=== PATIENT | female | born 1935 | race Caucasian/White ===

== ENCOUNTER 2021-04-11 14:15 | Inpatient (IN) ==
[2021-04-12] MEDS ORDERED: Naloxone 0.4 MG/ML INJ IVP PRN (01:57)
[2021-04-12] MEDS ORDERED: Ondansetron 4 MG/2 ML VIAL IVP PRN (01:57)
[2021-04-12] MEDS ORDERED: Acetaminophen 325 MG TABLET PO PRN (01:57)
[2021-04-12] MEDS ORDERED: *HR* Dextrose 50 % in Water (Syg) 50 ML SYRINGE IVP PRN (02:16)
[2021-04-12] MEDS ORDERED: Dextrose Gel 15 GM/37.5 ML TUBE PO PRN ×2 (02:16)
[2021-04-12] MEDS ORDERED: D5% in Water 1,000 ML IVC PRN (02:16)
[2021-04-12] MEDS ORDERED: *HR* Metoprolol 5 MG/5 ML VIAL IVP PRN (02:18)
[2021-04-12] MEDS: *HR* OxyCODONE Immed Rel 5 MG TABLET PO PRN ×3 (02:49→14:52)
[2021-04-12] MEDS: 0.9 % Sodium Chloride 1,000 ML IVC SCH ×2 (02:53→14:45)
[2021-04-12 04:58] LABS: Basophils # 0.1 K/mcL (0.0-0.2); Basophils % 0.6 %; Eosinophils # 0.3 K/mcL (0.0-0.6); Hematocrit 38.4 % (35.3-44.9); Hemoglobin 11.8 g/dL (11.5-15.4); Immature Granulocytes % 0.8 % (0-4); Lymphocytes # 0.8 K/mcL (0.6-4.6); Lymphocytes % 7.5 %; Mean Corpuscular HGB Conc 30.7 g/dL (31.6-35.5); Mean Corpuscular Hemoglobin 28.3 pg (28.0-33.3); Mean Corpuscular Volume 92.1 fL (83.0-100.0); Mean Platelet Volume 9.8 fL (9.4-12.4); Monocytes # 0.6 K/mcL (0.0-1.3); Monocytes % 5.2 %; Neutrophils # 8.9 K/mcL (1.6-8.9); Platelet Count 186 K/mcL (140-400); Red Blood Count 4.17 M/mcL (3.82-4.97); Red Cell Distribution Width 14.6 % (11.5-14.5); Segmented Neutrophils % 82.9 %; White Blood Count 10.7 K/mcL (4.3-11.1)
[2021-04-12 05:17] LABS: Alanine Aminotransferase 11 Units/L (7-52); Albumin 3.7 g/dL (3.5-5.7); Albumin/Globulin Ratio 1.3 (1.1-2.2); Alkaline Phosphatase 48 Units/L (34-104); Aspartate Amino Transferase 16 Units/L (13-39); BUN/Creatinine Ratio 23 (6-26); Bilirubin,Total 0.4 mg/dL (0.3-1.0); Blood Urea Nitrogen 19 mg/dL (8-23); Calcium 7.9 mg/dL (8.6-10.3); Carbon Dioxide 25 mEq/L (23-29); Chloride 104 mEq/L (98-107); Globulin 2.8 g/dL (2.4-3.5); Glucose 154 mg/dL (70-105); Osmolality,Calculated 291 (280-300); Potassium 4.3 mEq/L (3.5-5.1); Sodium 138 mEq/L (136-145); Total Protein 6.5 g/dL (6.4-8.9); eGFR For African Americans > 60 (> 60); eGFR For Non-African Americans > 60 (> 60)
[2021-04-12] MEDS ORDERED: Insulin LISPRO 300 UNITS/3 ML VIAL SUBQ SCH (06:00)
[2021-04-12] MEDS ORDERED: Perflutren Lipid Microsphere 1.3 ML in 0.9 % Sodium Chloride 8.7 ML IVP PRN (11:43)
[2021-04-12] MEDS: Insulin LISPRO 300 UNITS/3 ML VIAL SUBQ SCH ×2 (13:58→17:17)
[2021-04-13 05:32] LABS: INR 1.2; Prothrombin Time 13.7 Seconds (9.4-12.1)
[2021-04-13] MEDS ORDERED: Sugammadex Sodium 200 MG/2 ML VIAL IV ONE ×2 (07:48→08:58)
[2021-04-13] MEDS ORDERED: *HR* Rocuronium Bromide 50 MG/5 ML VIAL ONE ×2 (07:48→08:58)
[2021-04-13] MEDS ORDERED: *HR* Propofol 200 MG/20 ML VIAL IVP ONE ×2 (07:48→08:59)
[2021-04-13] MEDS ORDERED: *HR* FentaNYL (PF) 100 MCG/2 ML VIAL ONE ×3 (07:48→09:34)
[2021-04-13] MEDS ORDERED: Lidocaine -MPF 2% 2 ML VIAL ONE ×2 (07:48→08:58)
[2021-04-13] MEDS ORDERED: *HR* Succinylcholine 200 MG/10 ML VIAL IVP ONE ×2 (07:48→08:58)
[2021-04-13] MEDS ORDERED: Ondansetron 4 MG/2 ML VIAL ONE ×2 (07:48→08:58)
[2021-04-13] MEDS ORDERED: Povidone-Iodine 45 ML, Sodium Chloride IRRigation 1,000 ML IR ONE (08:00)
[2021-04-13] MEDS ORDERED: Famotidine 20 MG/2 ML VIAL IVP ONE (08:01)
[2021-04-13] MEDS ORDERED: *HR* HYDROmorphone PF 0.5 MG/0.5 ML SYRINGE IVP PRN (08:01)
[2021-04-13] MEDS ORDERED: Ondansetron 4 MG/2 ML VIAL IVP PRN (08:01)
[2021-04-13] MEDS ORDERED: TOTAL JOINT MIXTURE (100ML) INTRAART ONE (08:15)
[2021-04-13] MEDS ORDERED: Vancomycin 1,000 MG VIAL ONE (08:29)
[2021-04-13] MEDS ORDERED: Ethanol\\Acetic Acid\\Na Ace\\Ben 1,000 ML IRRIG.SOLN IR ONE (08:29)
[2021-04-13] MEDS: Ringers Solution, Lactated 1,000 ML IVC SCH ×2 (08:32→21:34)
[2021-04-13] MEDS ORDERED: Acetaminophen IV 1,000 MG/100 ML BAG IVPB ONE (10:13)
[2021-04-13] MEDS: amLODIPine 5 MG TABLET PO SCH (13:12)
[2021-04-13] MEDS: Insulin LISPRO 300 UNITS/3 ML VIAL SUBQ SCH ×3 (13:12→16:44)
[2021-04-13] MEDS: Cholecalciferol (D-3) 1,000 UNIT (25MCG) TABLET PO SCH (13:13)
[2021-04-13] MEDS: Cyanocobalamin (B-12) 1,000 MCG TABLET PO SCH (13:13)
[2021-04-13] MEDS: *HR* HYDROcodone/Acet 5/325 mg TABLET PO PRN (21:33)
[2021-04-13] MEDS: CeFAZolin 2,000 MG/120 ML BAG IVPB SCH (21:59)
[2021-04-14 05:23] LABS: BUN/Creatinine Ratio 27 (6-26); Blood Urea Nitrogen 25 mg/dL (8-23); Calcium 7.4 mg/dL (8.6-10.3); Carbon Dioxide 26 mEq/L (23-29); Chloride 104 mEq/L (98-107); Glucose 221 mg/dL (70-105); Magnesium 1.7 mg/dL (1.6-2.6); Osmolality,Calculated 295 (280-300); Phosphorous 1.7 mg/dL (2.7-4.5); Potassium 4.6 mEq/L (3.5-5.1); Sodium 137 mEq/L (136-145); eGFR For African Americans > 60 (> 60); eGFR For Non-African Americans 57 (> 60)
[2021-04-14 05:24] LABS: Basophils % 0.2 %; Eosinophils # 0.2 K/mcL (0.0-0.6); Eosinophils % 2.8 %; Hematocrit 26.2 % (35.3-44.9); Immature Granulocytes % 0.5 % (0-4); Lymphocytes # 0.4 K/mcL (0.6-4.6); Lymphocytes % 6.5 %; Mean Corpuscular HGB Conc 31.7 g/dL (31.6-35.5); Mean Corpuscular Hemoglobin 28.5 pg (28.0-33.3); Mean Platelet Volume 9.9 fL (9.4-12.4); Monocytes # 0.5 K/mcL (0.0-1.3); Monocytes % 7.7 %; Neutrophils # 5.3 K/mcL (1.6-8.9); Platelet Count 144 K/mcL (140-400); Red Blood Count 2.91 M/mcL (3.82-4.97); Red Cell Distribution Width 14.2 % (11.5-14.5); Segmented Neutrophils % 82.3 %; White Blood Count 6.5 K/mcL (4.3-11.1)
[2021-04-14 05:25] LABS: Hemoglobin 8.3 g/dL (11.5-15.4)
[2021-04-14] MEDS: CeFAZolin 2,000 MG/120 ML BAG IVPB SCH ×3 (07:15→22:42)
[2021-04-14] MEDS: *HR* HYDROcodone/Acet 5/325 mg TABLET PO PRN ×3 (07:15→22:14)
[2021-04-14] MEDS: Insulin LISPRO 300 UNITS/3 ML VIAL SUBQ SCH ×3 (07:47→18:23)
[2021-04-14] MEDS: amLODIPine 5 MG TABLET PO SCH (07:49)
[2021-04-14] MEDS: Cyanocobalamin (B-12) 1,000 MCG TABLET PO SCH (07:49)
[2021-04-14] MEDS: Cholecalciferol (D-3) 1,000 UNIT (25MCG) TABLET PO SCH (07:49)
[2021-04-14] MEDS ORDERED: MOM Conc 10 ML UD.LIQ PO PRN (11:18)
[2021-04-14] MEDS ORDERED: *HR* Promethazine 25 MG/ML VIAL IM PRN (11:18)
[2021-04-14] MEDS ORDERED: Sennosides 8.6 MG TABLET PO PRN (11:18)
[2021-04-14] MEDS ORDERED: Ringers Solution, Lactated 1,000 ML IVC SCH (11:30)
[2021-04-14] MEDS: Ascorbic Acid 500 MG TABLET PO SCH (18:22)
[2021-04-14] MEDS ORDERED: CeFAZolin 2,000 MG/120 ML BAG IVPB SCH (20:00)
[2021-04-14] MEDS: Insulin DETEMIR 100 UNIT/ML X5UNITS SUBQ SCH (22:14)
[2021-04-15 05:57] LABS: Hematocrit 25.3 % (35.3-44.9)
[2021-04-15 06:14] LABS: BUN/Creatinine Ratio 25 (6-26); Blood Urea Nitrogen 18 mg/dL (8-23); Calcium 7.8 mg/dL (8.6-10.3); Carbon Dioxide 28 mEq/L (23-29); Chloride 105 mEq/L (98-107); Glucose 173 mg/dL (70-105); Osmolality,Calculated 294 (280-300); Phosphorous 1.6 mg/dL (2.7-4.5); Sodium 139 mEq/L (136-145); eGFR For African Americans > 60 (> 60); eGFR For Non-African Americans > 60 (> 60)
[2021-04-15] MEDS: *HR* HYDROcodone/Acet 5/325 mg TABLET PO PRN (06:41)
[2021-04-15] MEDS: amLODIPine 5 MG TABLET PO SCH (08:10)
[2021-04-15] MEDS: Cyanocobalamin (B-12) 1,000 MCG TABLET PO SCH (08:10)
[2021-04-15] MEDS: Cholecalciferol (D-3) 1,000 UNIT (25MCG) TABLET PO SCH (08:10)
[2021-04-15] MEDS: Insulin LISPRO 300 UNITS/3 ML VIAL SUBQ SCH ×3 (08:11→17:44)
[2021-04-15] MEDS: Ascorbic Acid 500 MG TABLET PO SCH ×2 (08:11→17:44)
[2021-04-15] MEDS: Multivit/Ca/Min/Fe/FA 1 TAB TABLET PO SCH (08:11)
[2021-04-15 19:13] LABS: Hematocrit 27.5 % (35.3-44.9); Hemoglobin 8.7 g/dL (11.5-15.4)
[2021-04-15] MEDS: Insulin DETEMIR 100 UNIT/ML X5UNITS SUBQ SCH (22:16)
[2021-04-16 04:59] LABS: Hematocrit 27.1 % (35.3-44.9); Hemoglobin 8.5 g/dL (11.5-15.4)
[2021-04-16 05:13] LABS: BUN/Creatinine Ratio 26 (6-26); Blood Urea Nitrogen 17 mg/dL (8-23); Calcium 8.6 mg/dL (8.6-10.3); Carbon Dioxide 30 mEq/L (23-29); Chloride 102 mEq/L (98-107); Glucose 261 mg/dL (70-105); Osmolality,Calculated 299 (280-300); Sodium 139 mEq/L (136-145); eGFR For African Americans > 60 (> 60); eGFR For Non-African Americans > 60 (> 60)
[2021-04-16] MEDS: amLODIPine 5 MG TABLET PO SCH (08:20)
[2021-04-16] MEDS: Cyanocobalamin (B-12) 1,000 MCG TABLET PO SCH (08:20)
[2021-04-16] MEDS: Multivit/Ca/Min/Fe/FA 1 TAB TABLET PO SCH (08:20)
[2021-04-16] MEDS: Ascorbic Acid 500 MG TABLET PO SCH ×2 (08:20→17:14)
[2021-04-16] MEDS: Cholecalciferol (D-3) 1,000 UNIT (25MCG) TABLET PO SCH (08:20)
[2021-04-16] MEDS: Insulin LISPRO 300 UNITS/3 ML VIAL SUBQ SCH ×3 (08:21→17:14)
[2021-04-16] MEDS ORDERED: *HR* OxyCODONE/APAP 5/325 TABLET PO ONE (10:53)
[2021-04-16] MEDS: polyethylene glycoL 3350 17 GM POWD.PACK PO SCH (11:49)
[2021-04-16] MEDS: Insulin DETEMIR 100 UNIT/ML X5UNITS SUBQ SCH (21:28)
[2021-04-16] MEDS: *HR* HYDROcodone/Acet 5/325 mg TABLET PO PRN (23:36)
[2021-04-17 02:46] LABS: Hematocrit 28.6 % (35.3-44.9); Hemoglobin 8.9 g/dL (11.5-15.4)
[2021-04-17] MEDS: Cholecalciferol (D-3) 1,000 UNIT (25MCG) TABLET PO SCH (08:50)
[2021-04-17] MEDS: Ascorbic Acid 500 MG TABLET PO SCH (08:50)
[2021-04-17] MEDS: Cyanocobalamin (B-12) 1,000 MCG TABLET PO SCH (08:50)
[2021-04-17] MEDS: amLODIPine 5 MG TABLET PO SCH (08:52)
[2021-04-17] MEDS: Multivit/Ca/Min/Fe/FA 1 TAB TABLET PO SCH (08:52)
[2021-04-17] MEDS: polyethylene glycoL 3350 17 GM POWD.PACK PO SCH (08:53)
[2021-04-17] MEDS: Insulin LISPRO 300 UNITS/3 ML VIAL SUBQ SCH ×2 (08:53→13:31)
[2021-04-17 09:19] VITALS: BP 144/78; PULSE 68; TEMP 98.2; O2SAT 96
[2021-04-17 13:26] LABS: Adenovirus Not Detected (Not Detect); Bordetella Pertussis Not Detected (Not Detect); Chlamydophila pneumoniae Not Detected (Not Detect); Coronavirus 229E Not Detected (Not Detect); Coronavirus HKU1 Not Detected (Not Detect); Coronavirus NL63 Not Detected (Not Detect); Coronavirus OC43 Not Detected (Not Detect); Human Metapneumovirus Not Detected (Not Detect); Human Rhinovirus/Enterovirus Not Detected (Not Detect); Influenza A Subtype 2009 H1 Not Detected (Not Detect); Influenza B Not Detected (Not Detect); Mycoplasma pneumoniae Not Detected (Not Detect); Parainfluenza Virus 1 Not Detected (Not Detect); Parainfluenza Virus 2 Not Detected (Not Detect); Parainfluenza Virus 3 Not Detected (Not Detect); Parainfluenza Virus 4 Not Detected (Not Detect); Respiratory Syncytial Virus Not Detected (Not Detect); SARS-CoV-2 Not Detected (Not Detect)
== END 2021-04-17 17:00 | DRG 522 ==
LOC: 4WAOSI → SUATTDRO 04-12 00:50
PROVIDERS: ADMIT Internal Medicine; ATTEND Student in an Organized Health Care Education/Training Program

== ENCOUNTER 2021-09-19 15:01 | Inpatient (IN) ==
[2021-09-19] MEDS ORDERED: *HR* HYDROmorphone (PF) 1 MG/ML SYRINGE IVP ONE (16:45)
[2021-09-19 16:52] LABS: Basophils % 0.4 %; Eosinophils # 0.1 K/mcL (0.0-0.6); Eosinophils % 0.5 %; Hematocrit 39.6 % (35.3-44.9); Hemoglobin 12.7 g/dL (11.5-15.4); Lymphocytes # 0.7 K/mcL (0.6-4.6); Lymphocytes % 6.1 %; Mean Corpuscular HGB Conc 32.1 g/dL (31.6-35.5); Mean Corpuscular Hemoglobin 28.3 pg (28.0-33.3); Mean Corpuscular Volume 88.4 fL (83.0-100.0); Mean Platelet Volume 9.9 fL (9.4-12.4); Monocytes # 0.4 K/mcL (0.0-1.3); Neutrophils # 9.7 K/mcL (1.6-8.9); Platelet Count 170 K/mcL (140-400); Red Blood Count 4.48 M/mcL (3.82-4.97); Red Cell Distribution Width 14.4 % (11.5-14.5); White Blood Count 11.1 K/mcL (4.3-11.1)
[2021-09-19 17:02] LABS: INR 1.1; Prothrombin Time 12.4 Seconds (9.4-12.1)
[2021-09-19 17:05] LABS: Activated Partial Thrombo Time 34.3 Seconds (26.0-36.0)
[2021-09-19 17:10] LABS: Albumin 4.2 g/dL (3.5-5.7); Albumin/Globulin Ratio 1.6 (1.1-2.2); Bilirubin,Total 0.3 mg/dL (0.3-1.0); Calcium 9.2 mg/dL (8.6-10.3); Globulin 2.7 g/dL (2.4-3.5); Potassium 4.2 mEq/L (3.5-5.1); Total Protein 6.9 g/dL (6.4-8.9)
[2021-09-19] MEDS ORDERED: Perflutren Lipid Microsphere 1.3 ML in 0.9 % Sodium Chloride 8.7 ML IVP PRN (21:16)
[2021-09-19] MEDS ORDERED: Dextrose Gel 15 GM/37.5 ML TUBE PO PRN ×2 (21:18)
[2021-09-19] MEDS ORDERED: *HR* Dextrose 50 % in Water (Syg) 50 ML SYRINGE IVP PRN (21:18)
[2021-09-19] MEDS ORDERED: D5% in Water 1,000 ML IVC PRN (21:18)
[2021-09-19] MEDS ORDERED: Ondansetron 4 MG/2 ML VIAL IVP PRN (21:27)
[2021-09-19] MEDS ORDERED: Naloxone 0.4 MG/ML INJ IVP PRN (21:27)
[2021-09-19] MEDS: *HR* HYDROmorphone 2 MG TABLET PO PRN (21:30)
[2021-09-19] MEDS: tiZANidine 4 MG TABLET PO PRN (21:30)
[2021-09-19] MEDS: *HR* HYDROcodone/Acet 5/325 mg TABLET PO PRN (23:21)
[2021-09-19] MEDS: 0.9 % Sodium Chloride 1,000 ML IVC SCH (23:24)
[2021-09-20 00:39] LABS: Influenza A PCR Negative (Negative); Influenza B PCR Negative (Negative); Resp. Syncytial Virus PCR Negative (Negative)
[2021-09-20 00:40] LABS: SARS-CoV-2 by PCR (In House) Negative (Negative)
[2021-09-20] MEDS: Insulin LISPRO 300 UNITS/3 ML VIAL SUBQ SCH ×4 (01:40→20:36)
[2021-09-20] MEDS: *HR* HYDROmorphone 2 MG TABLET PO PRN (01:44)
[2021-09-20 04:29] LABS: Hematocrit 37.4 % (35.3-44.9); Hemoglobin 11.9 g/dL (11.5-15.4); Mean Corpuscular HGB Conc 31.8 g/dL (31.6-35.5); Mean Platelet Volume 9.8 fL (9.4-12.4); Platelet Count 171 K/mcL (140-400); Red Blood Count 4.25 M/mcL (3.82-4.97); Red Cell Distribution Width 14.5 % (11.5-14.5); White Blood Count 8.2 K/mcL (4.3-11.1)
[2021-09-20 04:39] LABS: Calcium 9.2 mg/dL (8.6-10.3); Chol/HDL Ratio 4.5 (0-4.9); Magnesium 1.6 mg/dL (1.6-2.6); Potassium 4.1 mEq/L (3.5-5.1)
[2021-09-20 04:55] LABS: Thyroid Stimulating Hormone 1.248 mcIU/mL (0.340-5.600)
[2021-09-20 05:23] LABS: Folate > 22.3 ng/mL (3.0-16.0); Vitamin B12 695 pg/mL (250-1100)
[2021-09-20] MEDS: *HR* HYDROcodone/Acet 5/325 mg TABLET PO PRN ×2 (05:40→20:29)
[2021-09-20] MEDS: tiZANidine 4 MG TABLET PO PRN ×2 (05:40→20:29)
[2021-09-20 06:48] LABS: Estimated Average Glucose 120 mg/dl; Hemoglobin A1C 5.8 %
[2021-09-20] MEDS ORDERED: Lidocaine -MPF 2% 5 ML VIAL ONE (07:31)
[2021-09-20] MEDS ORDERED: Lidocaine HCL 4 ML Topical Solution (Laryng-O-Jet Kit Sterile Pak) TP ONE (07:31)
[2021-09-20] MEDS ORDERED: Ondansetron 4 MG/2 ML VIAL ONE (07:31)
[2021-09-20] MEDS ORDERED: *HR* Propofol 200 MG/20 ML VIAL IVP ONE (07:31)
[2021-09-20] MEDS ORDERED: Vancomycin 1,000 MG VIAL ONE (07:46)
[2021-09-20] MEDS ORDERED: Ethanol\\Acetic Acid\\Na Ace\\Ben 1,000 ML IRRIG.SOLN IR ONE (07:46)
[2021-09-20] MEDS ORDERED: Aspirin Enteric Coated 81 MG Tablet PO SCH (09:00)
[2021-09-20] MEDS: amLODIPine 5 MG TABLET PO SCH (09:19)
[2021-09-20] MEDS: Cholecalciferol (D-3) 1,000 UNIT (25MCG) TABLET PO SCH (09:20)
[2021-09-20] MEDS: lisinopriL 20 MG TABLET PO SCH (09:20)
[2021-09-20] MEDS: Cyanocobalamin (B-12) 1,000 MCG TABLET PO SCH (09:20)
[2021-09-20] MEDS: Multivit/Ca/Min/Fe/FA 1 TAB TABLET PO SCH (09:20)
[2021-09-20] MEDS ORDERED: CeFAZolin Syr 2,000MG/20 ML 2,000 MG/20 ML SYRINGE IVPB ONE (09:23)
[2021-09-20] MEDS ORDERED: Acetaminophen IV 1,000 MG/100 ML BAG IVPB ONE (09:27)
[2021-09-20] MEDS ORDERED: Famotidine 20 MG/2 ML VIAL IVP ONE (09:27)
[2021-09-20] MEDS: Ringers Solution, Lactated 1,000 ML IVC SCH (09:43)
[2021-09-20] MEDS ORDERED: *HR* Rocuronium Bromide 50 MG/5 ML VIAL ONE (10:33)
[2021-09-20] MEDS ORDERED: Tranexamic Acid 1,000 MG/10 ML VIAL ONE (10:34)
[2021-09-20] MEDS ORDERED: *HR* FentaNYL (PF) 100 MCG/2 ML VIAL ONE (10:34)
[2021-09-20] MEDS ORDERED: *HR* Phenylephrine 10 MG/ML VIAL ONE (10:35)
[2021-09-20] MEDS ORDERED: Albumin Human 5% 12.5 GM/250 ML IV.SOLN ONE (10:46)
[2021-09-20] MEDS ORDERED: *HR* Labetalol 20 MG/4 ML SYRINGE IVP ONE (11:55)
[2021-09-20] MEDS ORDERED: *HR* HYDROMORPHONE 2 MG/ML VIAL ONE (11:56)
[2021-09-20] MEDS ORDERED: Ondansetron 4 MG/2 ML VIAL IVP PRN (13:04)
[2021-09-20] MEDS ORDERED: Morphine Sulfate 2 MG/ML SYRINGE IVP PRN (13:04)
[2021-09-20] MEDS: CeFAZolin 2 GM/120 ML BAG IVPB SCH (20:32)
[2021-09-20] MEDS: 0.9 % Sodium Chloride 1,000 ML IVC SCH (20:33)
[2021-09-21] MEDS: CeFAZolin 2 GM/120 ML BAG IVPB SCH (02:54)
[2021-09-21 04:52] LABS: Basophils % 0.6 %; Eosinophils # 0.2 K/mcL (0.0-0.6); Eosinophils % 2.1 %; Hemoglobin 9.1 g/dL (11.5-15.4); Immature Granulocytes % 0.6 % (0-4); Lymphocytes # 0.6 K/mcL (0.6-4.6); Lymphocytes % 8.5 %; Mean Corpuscular HGB Conc 32.5 g/dL (31.6-35.5); Mean Corpuscular Hemoglobin 29.3 pg (28.0-33.3); Mean Platelet Volume 10.2 fL (9.4-12.4); Monocytes # 0.6 K/mcL (0.0-1.3); Monocytes % 8.7 %; Neutrophils # 5.7 K/mcL (1.6-8.9); Platelet Count 150 K/mcL (140-400); Red Blood Count 3.11 M/mcL (3.82-4.97); Red Cell Distribution Width 14.4 % (11.5-14.5); Segmented Neutrophils % 79.5 %; White Blood Count 7.2 K/mcL (4.3-11.1)
[2021-09-21 04:55] LABS: Hematocrit 28.5 % (35.3-44.9); Mean Corpuscular HGB Conc 31.6 g/dL (31.6-35.5); Mean Corpuscular Hemoglobin 28.7 pg (28.0-33.3); Mean Corpuscular Volume 90.8 fL (83.0-100.0); Mean Platelet Volume 10.1 fL (9.4-12.4); Platelet Count 141 K/mcL (140-400); Red Blood Count 3.14 M/mcL (3.82-4.97); Red Cell Distribution Width 14.4 % (11.5-14.5); White Blood Count 7.2 K/mcL (4.3-11.1)
[2021-09-21 05:13] LABS: Calcium 8.6 mg/dL (8.6-10.3); Potassium 4.6 mEq/L (3.5-5.1)
[2021-09-21] MEDS ORDERED: Iron Sucrose Complex 200 MG in 0.9 % Sodium Chloride 100 ML IVPB ONE (07:26)
[2021-09-21] MEDS: Cyanocobalamin (B-12) 1,000 MCG TABLET PO SCH (08:36)
[2021-09-21] MEDS: lisinopriL 20 MG TABLET PO SCH (08:36)
[2021-09-21] MEDS: Metoprolol XL (24 HR) Succ 25 MG TAB.ER.24H PO SCH (08:36)
[2021-09-21] MEDS: Multivit/Ca/Min/Fe/FA 1 TAB TABLET PO SCH (08:37)
[2021-09-21] MEDS: amLODIPine 5 MG TABLET PO SCH (08:37)
[2021-09-21] MEDS: Cholecalciferol (D-3) 1,000 UNIT (25MCG) TABLET PO SCH (08:37)
[2021-09-21] MEDS: *HR* HYDROcodone/Acet 5/325 mg TABLET PO PRN (08:44)
[2021-09-21] MEDS: Insulin LISPRO 300 UNITS/3 ML VIAL SUBQ SCH ×3 (08:46→17:17)
[2021-09-21] MEDS: Ringers Solution, Lactated 1,000 ML IVC SCH (11:16)
[2021-09-21] MEDS: Acetaminophen 325 MG TABLET PO PRN (12:42)
[2021-09-21] MEDS: Aspirin Enteric Coated 325 MG Tablet PO SCH (17:16)
[2021-09-21] MEDS ORDERED: Insulin LISPRO 300 UNITS/3 ML VIAL SUBQ SCH (21:00)
[2021-09-22 05:11] LABS: Basophils # 0.1 K/mcL (0.0-0.2); Basophils % 0.7 %; Eosinophils # 0.3 K/mcL (0.0-0.6); Hemoglobin 8.1 g/dL (11.5-15.4); Immature Granulocytes % 0.7 % (0-4); Lymphocytes # 0.8 K/mcL (0.6-4.6); Lymphocytes % 10.7 %; Mean Corpuscular HGB Conc 32.4 g/dL (31.6-35.5); Mean Corpuscular Hemoglobin 29.3 pg (28.0-33.3); Mean Corpuscular Volume 90.6 fL (83.0-100.0); Mean Platelet Volume 9.9 fL (9.4-12.4); Monocytes # 0.6 K/mcL (0.0-1.3); Monocytes % 7.8 %; Neutrophils # 5.5 K/mcL (1.6-8.9); Platelet Count 137 K/mcL (140-400); Red Blood Count 2.76 M/mcL (3.82-4.97); Red Cell Distribution Width 14.6 % (11.5-14.5); Segmented Neutrophils % 76.1 %; White Blood Count 7.2 K/mcL (4.3-11.1)
[2021-09-22] MEDS: *HR* HYDROcodone/Acet 5/325 mg TABLET PO PRN ×2 (05:15→09:29)
[2021-09-22 05:35] LABS: Calcium 8.5 mg/dL (8.6-10.3); Potassium 4.3 mEq/L (3.5-5.1)
[2021-09-22] MEDS: Insulin LISPRO 300 UNITS/3 ML VIAL SUBQ SCH ×3 (08:49→16:35)
[2021-09-22] MEDS: Metoprolol XL (24 HR) Succ 25 MG TAB.ER.24H PO SCH (08:50)
[2021-09-22] MEDS: Multivit/Ca/Min/Fe/FA 1 TAB TABLET PO SCH (08:50)
[2021-09-22] MEDS: Cholecalciferol (D-3) 1,000 UNIT (25MCG) TABLET PO SCH (08:50)
[2021-09-22] MEDS: lisinopriL 20 MG TABLET PO SCH (08:50)
[2021-09-22] MEDS: amLODIPine 5 MG TABLET PO SCH (08:51)
[2021-09-22] MEDS: Aspirin Enteric Coated 325 MG Tablet PO SCH ×2 (08:51→20:46)
[2021-09-22] MEDS: Ringers Solution, Lactated 1,000 ML IVC SCH (08:51)
[2021-09-22] MEDS: Cyanocobalamin (B-12) 1,000 MCG TABLET PO SCH (08:51)
[2021-09-22] MEDS ORDERED: Iron Sucrose Complex 250 MG in 0.9 % Sodium Chloride 250 ML IVPB ONE (13:21)
[2021-09-22] MEDS: Insulin DETEMIR 100 UNIT/ML X5UNITS SUBQ SCH (20:46)
[2021-09-23 05:19] LABS: Basophils # 0.1 K/mcL (0.0-0.2); Basophils % 0.7 %; Eosinophils # 0.3 K/mcL (0.0-0.6); Eosinophils % 4.4 %; Hematocrit 23.8 % (35.3-44.9); Hemoglobin 7.6 g/dL (11.5-15.4); Immature Granulocytes % 1.4 % (0-4); Lymphocytes % 14.4 %; Mean Corpuscular HGB Conc 31.9 g/dL (31.6-35.5); Mean Corpuscular Hemoglobin 29.1 pg (28.0-33.3); Mean Corpuscular Volume 91.2 fL (83.0-100.0); Mean Platelet Volume 10.3 fL (9.4-12.4); Monocytes # 0.5 K/mcL (0.0-1.3); Monocytes % 7.4 %; Nucleated Red Blood Cells 0.3 /100 WBC (0); Platelet Count 165 K/mcL (140-400); Red Blood Count 2.61 M/mcL (3.82-4.97); Red Cell Distribution Width 14.6 % (11.5-14.5); Segmented Neutrophils % 71.7 %
[2021-09-23 05:38] LABS: BUN/Creatinine Ratio 30 (6-26); Blood Urea Nitrogen 31 mg/dL (8-23); Calcium 8.9 mg/dL (8.6-10.3); Carbon Dioxide 29 mEq/L (23-29); Chloride 103 mEq/L (98-107); Glucose 183 mg/dL (70-105); Magnesium 1.8 mg/dL (1.6-2.6); Osmolality,Calculated 295 (280-300); Potassium 4.2 mEq/L (3.5-5.1); Sodium 137 mEq/L (136-145); eGFR For African Americans > 60 (> 60); eGFR For Non-African Americans 50 (> 60)
[2021-09-23] MEDS: Metoprolol XL (24 HR) Succ 25 MG TAB.ER.24H PO SCH (08:21)
[2021-09-23] MEDS: Multivit/Ca/Min/Fe/FA 1 TAB TABLET PO SCH (08:21)
[2021-09-23] MEDS: Aspirin Enteric Coated 325 MG Tablet PO SCH ×2 (08:21→20:50)
[2021-09-23] MEDS: Cholecalciferol (D-3) 1,000 UNIT (25MCG) TABLET PO SCH (08:21)
[2021-09-23] MEDS: Cyanocobalamin (B-12) 1,000 MCG TABLET PO SCH (08:21)
[2021-09-23] MEDS: lisinopriL 20 MG TABLET PO SCH (08:21)
[2021-09-23] MEDS: amLODIPine 5 MG TABLET PO SCH (08:22)
[2021-09-23] MEDS: Insulin LISPRO 300 UNITS/3 ML VIAL SUBQ SCH ×3 (08:25→17:03)
[2021-09-23] MEDS: Insulin DETEMIR 100 UNIT/ML X5UNITS SUBQ SCH (20:50)
[2021-09-23] MEDS: Acetaminophen 325 MG TABLET PO PRN (23:20)
[2021-09-24 06:54] LABS: Basophils # 0.1 K/mcL (0.0-0.2); Basophils % 1.4 %; Eosinophils # 0.3 K/mcL (0.0-0.6); Hematocrit 26.9 % (35.3-44.9); Hemoglobin 8.2 g/dL (11.5-15.4); Immature Granulocytes % 3.2 % (0-4); Lymphocytes % 14.7 %; Mean Corpuscular HGB Conc 30.5 g/dL (31.6-35.5); Mean Corpuscular Hemoglobin 28.2 pg (28.0-33.3); Mean Corpuscular Volume 92.4 fL (83.0-100.0); Mean Platelet Volume 10.3 fL (9.4-12.4); Monocytes # 0.6 K/mcL (0.0-1.3); Neutrophils # 4.4 K/mcL (1.6-8.9); Nucleated Red Blood Cells 0.5 /100 WBC (0); Platelet Count 201 K/mcL (140-400); Red Blood Count 2.91 M/mcL (3.82-4.97); Red Cell Distribution Width 14.6 % (11.5-14.5); Segmented Neutrophils % 66.7 %; White Blood Count 6.6 K/mcL (4.3-11.1)
[2021-09-24 07:40] LABS: BUN/Creatinine Ratio 37 (6-26); Blood Urea Nitrogen 37 mg/dL (8-23); Calcium 8.7 mg/dL (8.6-10.3); Carbon Dioxide 29 mEq/L (23-29); Chloride 103 mEq/L (98-107); Glucose 174 mg/dL (70-105); Osmolality,Calculated 299 (280-300); Potassium 4.4 mEq/L (3.5-5.1); Sodium 138 mEq/L (136-145); eGFR For African Americans > 60 (> 60); eGFR For Non-African Americans 53 (> 60)
[2021-09-24] MEDS: Multivit/Ca/Min/Fe/FA 1 TAB TABLET PO SCH (07:57)
[2021-09-24] MEDS: Cholecalciferol (D-3) 1,000 UNIT (25MCG) TABLET PO SCH (07:57)
[2021-09-24] MEDS: amLODIPine 5 MG TABLET PO SCH (07:57)
[2021-09-24] MEDS: Cyanocobalamin (B-12) 1,000 MCG TABLET PO SCH (07:57)
[2021-09-24] MEDS: Aspirin Enteric Coated 325 MG Tablet PO SCH ×2 (07:57→20:49)
[2021-09-24] MEDS: lisinopriL 20 MG TABLET PO SCH (07:58)
[2021-09-24] MEDS: Metoprolol XL (24 HR) Succ 25 MG TAB.ER.24H PO SCH (07:58)
[2021-09-24] MEDS: Insulin LISPRO 300 UNITS/3 ML VIAL SUBQ SCH ×3 (07:58→17:34)
[2021-09-24 08:30] LABS: Magnesium 1.7 mg/dL (1.6-2.6)
[2021-09-24] MEDS: Insulin DETEMIR 100 UNIT/ML X5UNITS SUBQ SCH (20:49)
[2021-09-24] MEDS: tiZANidine 4 MG TABLET PO PRN (20:49)
[2021-09-24] MEDS: *HR* HYDROcodone/Acet 5/325 mg TABLET PO PRN (20:49)
[2021-09-25] MEDS: *HR* HYDROcodone/Acet 5/325 mg TABLET PO PRN (03:26)
[2021-09-25 04:33] LABS: Basophils # 0.1 K/mcL (0.0-0.2); Hematocrit 24.3 % (35.3-44.9); Hemoglobin 7.5 g/dL (11.5-15.4); Mean Corpuscular HGB Conc 30.9 g/dL (31.6-35.5); Mean Corpuscular Hemoglobin 28.7 pg (28.0-33.3); Mean Corpuscular Volume 93.1 fL (83.0-100.0); Mean Platelet Volume 9.9 fL (9.4-12.4); Nucleated Red Blood Cells 0.3 /100 WBC (0); Platelet Count 195 K/mcL (140-400); Red Blood Count 2.61 M/mcL (3.82-4.97); Red Cell Distribution Width 14.8 % (11.5-14.5); White Blood Count 5.9 K/mcL (4.3-11.1)
[2021-09-25 04:56] LABS: BUN/Creatinine Ratio 34 (6-26); Blood Urea Nitrogen 31 mg/dL (8-23); Calcium 8.7 mg/dL (8.6-10.3); Carbon Dioxide 26 mEq/L (23-29); Chloride 104 mEq/L (98-107); Glucose 227 mg/dL (70-105); Magnesium 1.8 mg/dL (1.6-2.6); Osmolality,Calculated 300 (280-300); Potassium 4.1 mEq/L (3.5-5.1); Sodium 138 mEq/L (136-145); eGFR For African Americans > 60 (> 60); eGFR For Non-African Americans 60 (> 60)
[2021-09-25 05:17] LABS: Eosinophils # 0.4 K/mcL (0.0-0.6); Lymphocytes # 1.8 K/mcL (0.6-4.6); Monocytes # 0.7 K/mcL (0.0-1.3); Reactive Lymphocytes Present (Not Present)
[2021-09-25 05:18] LABS: Platelet Estimate Normal (Normal)
[2021-09-25] MEDS: amLODIPine 5 MG TABLET PO SCH (08:27)
[2021-09-25] MEDS: lisinopriL 20 MG TABLET PO SCH (08:27)
[2021-09-25] MEDS: Aspirin Enteric Coated 325 MG Tablet PO SCH (08:27)
[2021-09-25] MEDS: Cyanocobalamin (B-12) 1,000 MCG TABLET PO SCH (08:27)
[2021-09-25] MEDS: Cholecalciferol (D-3) 1,000 UNIT (25MCG) TABLET PO SCH (08:27)
[2021-09-25] MEDS: Multivit/Ca/Min/Fe/FA 1 TAB TABLET PO SCH (08:27)
[2021-09-25] MEDS: Metoprolol XL (24 HR) Succ 25 MG TAB.ER.24H PO SCH (08:27)
[2021-09-25] MEDS: Insulin LISPRO 300 UNITS/3 ML VIAL SUBQ SCH ×2 (08:28→12:13)
[2021-09-25 10:34] VITALS: BP 94/54; PULSE 56; TEMP 97.6; O2SAT 94
[2021-09-25 13:59] LABS: Influenza A PCR Negative (Negative); Influenza B PCR Negative (Negative); Resp. Syncytial Virus PCR Negative (Negative)
[2021-09-25 14:20] LABS: SARS-CoV-2 by PCR (In House) Negative (Negative)
== END 2021-09-25 15:00 | DRG 522 ==
LOC: EMEROOARM 15:01 → 4WAOSI 15:01 → SUATTDRO 21:42
PROVIDERS: ADMIT Family Medicine; ATTEND Pharmacist